=== PATIENT | male | born 1995 | race Two or more races ===

== ENCOUNTER 2023-02-05 12:15 | Emergency (ER) | payer OTHER ==
[~2023-02-05] VITALS: Ht 157.5 cm; Wt 81.8 kg
[2023-02-05] MEDS ORDERED: IBUPROFEN 800 MG TAB PO ONE (15:15)
[2023-02-05] MEDS ORDERED: HYDROcodone-ACET 5/325MG TAB PO ONE (15:15)
[2023-02-05] MEDS ORDERED: ACE3T PO (15:19)
[2023-02-05] MEDS ORDERED: CEPH500C PO (15:19)
[2023-02-05] MEDS ORDERED: IBUP-1456 PO (15:19)
[2023-02-05 15:45] VITALS: BP 132/86; PULSE 98; RESP 17; O2SAT 98
[2023-02-05 15:49] VITALS: TEMP 98.9
== END 2023-02-05 15:52 | disposition home or self-care (01) ==
LOC: ER 12:15
DX: L02.31 Cutaneous abscess of buttock (principal)
CPT/HCPCS: 10060; 46040; 46050